=== PATIENT | female | born 1955 | race Caucasian/White ===

== ENCOUNTER 2017-04-01 10:40 | Day surgery (SDC) | payer OTHER ==
[2017-04-01] MEDS ORDERED: LIDOCAINE HCL/PF 2% SDV 5ML VIAL ONE (11:17)
[2017-04-01] MEDS ORDERED: PROPOFOL 20 ML ONE ×2 (11:17)
[2017-04-01 11:20] VITALS: BMI 21.7
[2017-04-01 12:18] VITALS: TEMP 97.8
[2017-04-01 13:19] VITALS: BP 123/81; PULSE 77
--- NOTE | 2017-04-05 16:41 | PATH ---
Surgical Pathology Report Patient Name: EYAL SHAH [facility]. Rec. #: [id number] /Age/Gender: 1955 (Age: 61) / F Account: [id number] Location: [facility]-ENDOSCOPY Taken: 04/01/2017 Received: 04/01/2017 Reported: 04/05/2017 Physicians: Dusty Munoz M.D. Specimen(s) Received A: POLYPS SIGMOID COLON B: BX TRANSVERSE COLON POLYP Clinical History History of colon polyps Redundant sigmoid, diverticulosis, colon polyps, hemorrhoids Final Diagnosis A. SIGMOID COLON, POLYPS, BIOPSY: POLYPOID COLONIC MUCOSA WITH PROMINENT LYMPHOID AGGREGATES AND SUPERFICIAL HYPERPLASTIC FEATURES. B. TRANSVERSE COLON, POLYPS, BIOPSY: POLYPOID COLONIC MUCOSA WITH FOCAL SUPERFICIAL HYPERPLASTIC FEATURES. Electronically Signed Lakisha Yuan M.D. Gross Description A. Received in formalin, labeled "biopsy sigmoid colon polyps" are 5 mensah, irregular portions of soft tissue ranging from 0.2-0.5 cm. in greatest dimension. The specimens are submitted in toto in one cassette. B. Received in formalin, labeled "biopsy transverse colon polyp" are 2 mensah, irregular portions of soft tissue measuring 0.3 and 0.4 cm. in greatest dimension. The specimens are submitted in toto in one cassette. 04/01/201704/01/2017
== END 2017-04-01 13:10 | disposition home or self-care (01) ==
LOC: JASU-ENDO 10:40
PROVIDERS: ATTEND Internal Medicine Gastroenterology
PROC: 0DBL8ZX Excision of Transverse Colon, Via Natural or Artificial Opening Endoscopic, Diagnostic (ICD-10-PCS; 2017-04-01)
PROC: 0DBN8ZX Excision of Sigmoid Colon, Via Natural or Artificial Opening Endoscopic, Diagnostic (ICD-10-PCS; principal; 2017-04-01 11:30)
DX: Z12.11 Encounter for screening for malignant neoplasm of colon (principal); Z86.010 Personal history of colon polyps; D12.5 Benign neoplasm of sigmoid colon; D12.3 Benign neoplasm of transverse colon; K57.30 Diverticulosis of large intestine without perforation or abscess without bleeding; K64.8 Other hemorrhoids; K63.89 Other specified diseases of intestine
CPT/HCPCS: 88305-TC